=== PATIENT | female | born 2000 | race African-American/Black ===

== ENCOUNTER 2022-03-27 09:03 | Emergency (ER) | payer BC, SELFPAY ==
--- NOTE | 2022-03-27 12:35 | EDPHYS ---
Physician Documentation [facility] Name: Jake Lehman Age: 21 yrs Sex: Female : 2000 Arrival Date: 03/27/2022 Time: 09:07 Bed 9 Private MD: ED Physician Maldonado Willard HPI: 03/27 10:08 This 21 yrs old Black Female presents to ER via Ambulatory with complaints of Sore snw Throat, Nose Bleed, Cough, Breast Problem - pain, Headache. 10:08 The patient presents with sore throat. The patient describes throat pain as scratchy. snw Onset: The symptoms/episode began/occurred gradually, 5 day(s) ago, and became persistent. Severity of symptoms: At their worst the symptoms were moderate. Associated signs and symptoms: Pertinent positives: flu-like symptoms, headache, rhinorrhea, nose bleed. The patient has not experienced similar symptoms in the past. The patient has not recently seen a physician. Mom with breast ca. 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 - Social history:: Smoking status: Patient denies any tobacco usage or history of. ROS: 10:09 Eyes: Negative for injury, pain, redness, and discharge. snw 10:09 Neck: Negative for injury, pain, and swelling, Cardiovascular: Negative for chest pain, palpitations, and edema, Respiratory: Negative for shortness of breath, cough, wheezing, and pleuritic chest pain, Abdomen/GI: Negative for abdominal pain, nausea, vomiting, diarrhea, and constipation, Back: Negative for injury and pain, : Negative for injury, bleeding, discharge, and swelling, MS/Extremity: Negative for injury and deformity, Skin: Negative for injury, rash, and discoloration. 10:09 Constitutional: Positive for body aches, malaise. 10:09 ENT: Positive for nasal discharge, rhinorrhea, sinus congestion, nose bleed. 10:09 Neuro: Positive for headache. Exam: 10:10 Head/Face: Normocephalic, atraumatic. Eyes: Pupils equal round and reactive to light, snw extra-ocular motions intact. Lids and lashes normal. Conjunctiva and sclera are non-icteric and not injected. Cornea within normal limits. Periorbital areas with no swelling, redness, or edema. 10:10 Neck: Trachea midline, no thyromegaly or masses palpated, and no cervical lymphadenopathy. Supple, full range of motion without nuchal rigidity, or vertebral point tenderness. No Meningismus. Chest/axilla: Normal chest wall appearance and motion. Nontender with no deformity. No lesions are appreciated. Cardiovascular: Regular rate and rhythm with a normal S1 and S2. No gallops, murmurs, or rubs. Normal PMI, no JVD. No pulse deficits. 10:10 Chest/axilla: Normal chest wall appearance and motion. Nontender with no deformity. No lesions are appreciated. right breast minimally tender, no lesions palpated Respiratory: Lungs have equal breath sounds bilaterally, clear to auscultation and percussion. No rales, rhonchi or wheezes noted. No increased work of breathing, no retractions or nasal flaring. Abdomen/GI: Soft, non-tender, with normal bowel sounds. No distension or tympany. No guarding or rebound. No evidence of tenderness throughout. Back: No spinal tenderness. No costovertebral tenderness. Full range of motion. Skin: Warm, dry with normal turgor. Normal color with no rashes, no lesions, and no evidence of cellulitis. MS/ Extremity: Pulses equal, no cyanosis. Neurovascular intact. Full, normal range of motion. Neuro: Awake and alert, GCS 15, oriented to person, place, time, and situation. Cranial nerves II-XII grossly intact. Motor strength 5/5 in all extremities. Sensory grossly intact. Cerebellar exam normal. Normal gait. 10:10 Constitutional: The patient appears alert, awake, very small, compact body 10:10 ENT: External ear(s): are unremarkable, TM's: are normal, Nose: Nasal mucosa: edematous, nasal drainage, that is minimal, and is seen coming from both nares, that is clear. 10:10 ENT: Posterior pharynx: erythema, that is mild. Vital Signs: 09:42 BP 112 / 74; Pulse 89; Resp 16; Pulse Ox 100% on R/A; iw MDM: 09:28 Patient medically screened. snw 12:36 Data reviewed: vital signs, nurses notes. Data interpreted: Pulse oximetry: on room air snw is 100 %. Interpretation: normal. Counseling: I had a detailed discussion with the patient and/or guardian regarding: the historical points, exam findings, and any diagnostic results supporting the discharge/admit diagnosis, lab results, the need for outpatient follow up, to return to the emergency department if symptoms worsen or persist or if there are any questions or concerns that arise at home. Special discussion: Based on the history and exam findings, there is no indication for further emergent testing or inpatient evaluation. I discussed with the patient/guardian the need to see the primary care provider for further evaluation of the symptoms. 03/27 10:08 Order name: Flu; Complete Time: 11:48 snw 03/27 10:08 Order name: Strep; Complete Time: 11:48 snw 03/27 10:08 Order name: SARS-COV-2 RT PCR (Document "Date of Onset" if Symptomatic); Complete Time: snw 12:34 03/27 11:17 Order name: Throat Culture EDMS Administered Medications: No medications were administered Disposition: 13:10 Co-signature as Attending Physician, Maldonado Willard MD I agree with the assessment and kdr plan of care. Disposition Summary: 03/27/22 12:35 Discharge Ordered Location: Home snw Condition: Stable snw Diagnosis - Acute upper respiratory infection, unspecified snw - Epistaxis snw Followup: snw - With: Emergency Department - When: As needed - Reason: Worsening of condition Followup: snw - With: Private Physician - When: 2 - 3 days - Reason: Recheck today's complaints, Continuance of care, Re-evaluation by your physician Discharge Instructions: - Discharge Summary Sheet snw - Nosebleed, Adult snw - Upper Respiratory Infection, Adult snw - Cool Mist Vaporizer snw - Rehydration, Adult snw Forms: - Medication Reconciliation Form snw - Thank You Letter snw - Antibiotic Education snw - Prescription Opioid Use snw - Work release form eb Prescriptions: - Zyrtec 10 mg Oral tablet - take 1 tablet by ORAL route once daily; 20 tablet; Refills: 0, Product snw Selection Permitted - benzonatate 200 mg Oral Capsule - take 1 capsule by ORAL route 3 times per day as needed; 42 capsule; Refills: 0, snw Product Selection Permitted Signatures: Dispatcher [employer] Maldonado Berrios MD MD kdr Waters, Shelly, CROWN POUNCER-C CROWN POUNCER-Csnw Jeanine Kern RN RN iw
--- NOTE | 2022-03-27 12:35 | ER ---
Nurse's Notes [facility] Name: Jake Lehman Age: 21 yrs Sex: Female : 2000 Arrival Date: 03/27/2022 Time: 09:07 Bed 9 Private MD: Diagnosis: Acute upper respiratory infection, unspecified;Epistaxis Presentation: 03/27 09:42 Chief complaint: Patient states: this morning I woke up with a nose bleed and extreme iw headache and I coughed up blood this morning and my right boob is hurting. Coronavirus screen: At this time, the client does not indicate any symptoms associated with coronavirus-19. Ebola Screen: Patient negative for fever greater than or equal to 101.5 degrees Fahrenheit, and additional compatible Ebola Virus Disease symptoms Patient denies exposure to infectious person. Patient denies travel to an Ebola-affected area in the 21 days before illness onset. No symptoms or risks identified at this time. Initial Sepsis Screen: Does the patient meet any 2 criteria? No. Patient's initial sepsis screen is negative. Does the patient have a suspected source of infection? No. Patient's initial sepsis screen is negative. Risk Assessment: Do you want to hurt yourself or someone else? Patient reports no desire to harm self or others. Onset of symptoms was March 27, 2022. 09:42 Method Of Arrival: Ambulatory iw 09:42 Acuity: DINAH 3 iw Triage Assessment: 12:30 General: Appears in no apparent distress. Behavior is calm, cooperative. 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 - Social history:: Smoking status: Patient denies any tobacco usage or history of. Screenin:53 Abuse screen: Denies threats or abuse. Denies injuries from another. Nutritional iw screening: No deficits noted. Tuberculosis screening: No symptoms or risk factors identified. Fall Risk None identified. Assessment: 10:00 General: Appears in no apparent distress. Behavior is calm, cooperative. Pain: iw Complains of pain in right breast. Neuro: Level of Consciousness is awake, alert, obeys commands, Oriented to person, place, time, situation. Cardiovascular: Patient's skin is warm and dry. Respiratory: Airway is patent Respiratory effort is even, unlabored, Breath sounds are clear. EENT: Throat is pink. Derm: Skin is healthy with good turgor. Musculoskeletal: Range of motion: intact in all extremities. Vital Signs: 09:42 BP 112 / 74; Pulse 89; Resp 16; Pulse Ox 100% on R/A; iw ED Course: 09:07 Patient arrived in ED. as 09:12 Cecilia Carlson FNP-C is [facility] snw 09:12 Maldonado Willard MD is Attending Physician. snw 09:44 Triage completed. iw 09:44 Arm band placed on. iw 10:00 Patient has correct armband on for positive identification. iw 10:09 Jeanine Kern, RN is Primary Nurse. iw 12:53 No provider procedures requiring assistance completed. Patient did not have IV access iw during this emergency room visit. Administered Medications: No medications were administered Medication: 10:00 VIS not applicable for this client. iw Outcome: 12:35 Discharge ordered by . snw 12:53 Discharged to home ambulatory. iw 12:53 Condition: good 12:53 Discharge instructions given to patient, Instructed on discharge instructions, follow up and referral plans. Demonstrated understanding of instructions, follow-up care, medications, Prescriptions given X 2. 12:54 Patient left the ED. iw Signatures: Cecilia Carlson FNP-C [employer]SB[employer] SWITCH ADJUSTER-Csnw Nikki Colin as Jeanine Kern, RN RN iw Corrections: (The following items were deleted from the chart) 16:03 12:53 Discharge instructions given to patient, Instructed on discharge instructions, iw follow up and referral plans. Demonstrated understanding of instructions, follow-up care, medications, Prescriptions given X iw
[2022-03-27 13:36] VITALS: BP 112/74; O2SAT 100
== END 2022-03-27 12:54 | disposition home or self-care (01) ==
LOC: ER 09:03
DX: J06.9 Acute upper respiratory infection, unspecified (principal); R04.0 Epistaxis; Z20.822 Contact with and (suspected) exposure to COVID-19
CPT/HCPCS: 87070; 87081; 87804 ×2; 99281; U0003